=== PATIENT | male | born 1970 | race Caucasian/White ===

== ENCOUNTER 2024-10-24 13:30 | Emergency (ER) | payer SELFPAY ==
[~2024-10-24] VITALS: Ht 177.8 cm; Wt 133.8 kg
[2024-10-24 13:40] VITALS: TEMP 98.2
[2024-10-24] MEDS: HYDROCODONE/APAP 10MG-325MG TAB PO ONE (13:59)
[2024-10-24 15:28] VITALS: PULSE 91; RESP 16; O2SAT 96
[2024-10-24] MEDS ORDERED: HYDROCODON-ACE1 EA12 PO (15:33)
== END 2024-10-24 15:51 | disposition home or self-care (01) ==
LOC: ER 13:32
DX: S22.32XA Fracture of one rib, left side, initial encounter for closed fracture (principal); M25.522 Pain in left elbow; W10.8XXA Fall (on) (from) other stairs and steps, initial encounter; Y93.01 Activity, walking, marching and hiking; Y92.89 Other specified places as the place of occurrence of the external cause
CPT/HCPCS: 74176; 99284